=== PATIENT | male | born 1955 | race Caucasian/White ===

== ENCOUNTER → 2016-10-15 | Outpatient (CLI) | payer OTHER, MEDICARE ==
[~2016-10-15] MED LIST: CARVEDILOL25 MG PO; CLOPIDOGREL75 MG PO; Carafate1 GM PO; DIGITEK0.25 MG PO; DULOXETINE HCL30 MG PO; Duragesic 100100 MCG TD; LISINOPRIL10 MG PO; LYRICA100 M1 PO; LYRICA200 M1 PO; MIRTAZAPINE30 M2 PO; NATURE'S BLEND F1 MG PO; PERCOCET 325 MG1 TA2 PO; PERCOCET 325 MG1 TA5 PO; POTASSIUM CHLOR8 MEQ PO; SIMBRINZA 1%-0.28 ML OPH; TEMAZEPAM30 MG PO; TESTOSTERO200 MG/10 IM; TRAVOPROST 0.02.5 ML OP; ZOFRAN4 MG PO
[2016-10-15 15:42] LABS: BASO # 0.1 10*3/uL (0.0-0.1); BASO % 0.7 % (0.0-1.0); EOS # 0.5 10*3/uL (0.0-0.4); EOS % 4.9 % (1.0-4.0); IG # 0.1 10*3/uL (0.0-0.1); LYMPH # 1.3 10*3/uL (1.3-4.4); LYMPH % 11.8 % (27.0-41.0); MEAN CELL VOLUME 92.9 fl (80.0-94.0); MEAN CORPUSCULAR HGB CONC 33.3 g/dl (33.0-37.0); MEAN PLATELET VOLUME 10.6 fl (9.6-12.3); MONO # 0.8 10*3/uL (0.1-1.0); MONO % 7.2 % (3.0-9.0); NEUT # 8.1 10*3/uL (2.3-7.9); NEUT % 74.8 % (47.0-73.0); PLATELET COUNT AUTOMATED 250 10*3/uL (130-400); RED CELL DISTRI WIDTH 14.9 % (0-14.5); WHITE BLOOD COUNT 10.9 10*3/uL (4.8-10.8)
[2016-10-15 15:45] LABS: BILIRUBIN NEGATIVE (NEGATIVE); BLOOD NEGATIVE (NEGATIVE); CLARITY SL CLOUDY (CLEAR); COLOR YELLOW (YELLOW); GLUCOSE NEGATIVE (NEGATIVE); KETONE NEGATIVE (NEGATIVE); LEUKO ESTERASE 1+ (NEGATIVE); NITRITE NEGATIVE (NEGATIVE); PROTEIN TRACE (NEGATIVE); SPECIFIC GRAVITY 1.025 (1.005-1.030)
[2016-10-15 16:09] LABS: ALBUMIN 3.2 gm/dl (3.1-4.5); ALKALINE PHOSPHATASE 70 U/L (45-117); BILIRUBIN, TOTAL 0.5 mg/dl (0.2-1.0); BUN 8 mg/dl (7-24); C-REACTIVE PROTEIN 0.44 MG/DL (0-0.3); CARBON DIOXIDE 25 mmol/L (21-32); CHLORIDE 112 mmol/L (98-107); EST GLOM FILT AFRICAN AMERICAN > 60 ml/min; GLUCOSE 101 mg/dL (65-99); POTASSIUM 3.5 mmol/L (3.5-5.1); SGOT/AST 16 IU/L (3-35); SGPT/ALT 23 U/L (12-78); SODIUM 145 mmol/L (136-145); TOTAL PROTEIN 5.9 gm/dL (6.4-8.2)
[2016-10-15 16:14] LABS: BACTERIA 1+; EPITHELIAL CELLS 0-2; RBC 0-2 rbc/hpf (0-2); WBC 21-30 wbc/hpf (0-5)
[2016-10-15 16:16] LABS: PROTHROMBIN TIME 10.7 SECONDS (9.0-12.4)
== END | disposition home or self-care (01) ==
LOC: LAB 15:02
PROVIDERS: Neurological Surgery
DX: Z01.818 Encounter for other preprocedural examination (principal); Z51.81 Encounter for therapeutic drug level monitoring; Z79.899 Other long term (current) drug therapy; M81.8 Other osteoporosis without current pathological fracture; M47.816 Spondylosis without myelopathy or radiculopathy, lumbar region

== ENCOUNTER → 2017-01-17 | Outpatient (CLI) | payer OTHER, MEDICARE | END | disposition home or self-care (01) | LOC: MRI 01:46 | DX: M47.816 Spondylosis without myelopathy or radiculopathy, lumbar region (principal); M43.16 Spondylolisthesis, lumbar region; M79.652 Pain in left thigh; M54.5 Low back pain; M51.36 Other intervertebral disc degeneration, lumbar region ==

== ENCOUNTER 2017-07-25 09:50 | Emergency (ER) | payer OTHER, MEDICARE ==
[~2017-07-25] VITALS: Ht 177.8 cm; Wt 68.5 kg
[2017-07-25] MEDS ORDERED: CLINDAMYCIN HC300 MG PO (11:18)
== END 2017-07-25 11:36 | disposition home or self-care (01) ==
LOC: ED 09:50
DX: L03.116 Cellulitis of left lower limb (principal); Z88.5 Allergy status to narcotic agent; Z88.8 Allergy status to other drugs, medicaments and biological substances

== ENCOUNTER 2017-08-14 18:06 | Emergency (ER) | payer OTHER, MEDICARE ==
[~2017-08-14] VITALS: Ht 180.3 cm; Wt 68.0 kg
[~2017-08-14 18:06] MED LIST changes: +CLINDAMYCIN HC300 MG PO
[2017-08-14] MEDS ORDERED: AUGMENTIN 875875 MG PO (18:34)
== END 2017-08-14 19:00 | disposition home or self-care (01) ==
LOC: ED 18:06
DX: S01.412A Laceration without foreign body of left cheek and temporomandibular area, initial encounter (principal); W54.0XXA Bitten by dog, initial encounter; Y93.89 Activity, other specified; Y92.89 Other specified places as the place of occurrence of the external cause; Y99.8 Other external cause status; Z88.5 Allergy status to narcotic agent; Z88.8 Allergy status to other drugs, medicaments and biological substances; Z79.899 Other long term (current) drug therapy

== ENCOUNTER → 2017-10-31 | Outpatient (CLI) | payer MEDICARE, OTHER ==
[~2017-10-31] MED LIST changes: +AUGMENTIN 875875 MG PO
--- NOTE | ~2017-10-31 | HM ---
[place], [place] HOLTER MONITOR REPORT NAME: MAGGIE BANKS UNIT #: [id number] ROOM: DOCTOR: RADAMES BROCK MD BIRTHDATE: [birth year] DOS: 11/02/2017 INDICATIONS: Palpitations. PROCEDURE: The patient underwent monitoring utilizing a Holter device for 24 hours beginning on 10/31/2017. The recording was analyzed and interpreted on 11/02/2017. FINDINGS: The patient's rhythm was sinus throughout the monitored period with an average heart rate of 77. The heart rate varied from 53-112 beats per minute in sinus rhythm. He had rare isolated premature ventricular contractions. No ventricular tachycardia was seen. He had occasional isolated premature atrial contractions with two short atrial runs. The longest of these was 7 beats in duration at 6:00 in the evening and had a heart rate of 138. 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 A diary was submitted, but no entries were made. IMPRESSION: 1. Normal sinus rhythm with normal rate variation. 2. Rare premature ventricular contractions. 3. Occasional premature atrial contractions with a short (7 beat) run of AV olesya reentrant tachycardia. RADAMES BROCK MD CM:HOLTER:HOLTER MONITOR REPORT [id number] RADAMES BROCK MD
[2017-10-31 09:48] LABS: BASO # 0.1 10*3/uL (0.0-0.1); BASO % 0.9 % (0.0-1.0); EOS # 0.4 10*3/uL (0.0-0.4); EOS % 4.1 % (1.0-4.0); HEMATOCRIT 43.8 % (42.0-52.0); HEMOGLOBIN 14.4 g/dl (14.0-18.0); LYMPH # 1.6 10*3/uL (1.3-4.4); LYMPH % 18.8 % (27.0-41.0); MEAN CELL VOLUME 90.9 fl (80.0-94.0); MEAN CORPUSCULAR HGB 29.9 pg (27.0-31.0); MEAN CORPUSCULAR HGB CONC 32.9 g/dl (33.0-37.0); MEAN PLATELET VOLUME 11.3 fl (9.6-12.3); MONO # 0.7 10*3/uL (0.1-1.0); MONO % 7.7 % (3.0-9.0); NEUT # 5.8 10*3/uL (2.3-7.9); NEUT % 68.3 % (47.0-73.0); PLATELET COUNT AUTOMATED 181 10*3/uL (130-400); RED BLOOD COUNT 4.82 10*6/uL (4.50-5.90); WHITE BLOOD COUNT 8.5 10*3/uL (4.8-10.8)
[2017-10-31 10:31] LABS: ALBUMIN 3.2 gm/dl (3.1-4.5); BUN 5 mg/dl (7-24); CHLORIDE 109 mmol/L (98-107); POTASSIUM 3.5 mmol/L (3.5-5.1); SGOT/AST 22 IU/L (3-35); SODIUM 143 mmol/L (136-145)
[2017-10-31 10:42] LABS: ALKALINE PHOSPHATASE 85 U/L (45-117); CHOLESTEROL 119 mg/dL (<200); CREATININE 0.78 mg/dL (0.70-1.30); HDL CHOLESTEROL 36 mg/dl (40-60); LDL CHOLESTEROL 61 mg/dL (9-159); SGPT/ALT 39 U/L (12-78); TOTAL PROTEIN 6.1 gm/dL (6.4-8.2); TRIGLYCERIDES 108 mg/dl (<150); VLDL CHOLESTEROL 22 mg/dL (6-40)
== END | disposition home or self-care (01) ==
LOC: LAB 08:57 → CARD 09:00
PROVIDERS: Internal Medicine
DX: I73.9 Peripheral vascular disease, unspecified (principal); R00.2 Palpitations; E29.1 Testicular hypofunction; Z79.899 Other long term (current) drug therapy

== ENCOUNTER → 2017-11-09 | Outpatient (CLI) | payer MEDICARE, OTHER | END | disposition home or self-care (01) | LOC: RAD 08:53 | DX: R10.13 Epigastric pain (principal); R13.10 Dysphagia, unspecified ==

== ENCOUNTER → 2017-11-18 | Day surgery (SDC) | payer MEDICARE, OTHER ==
[~2017-11-18] VITALS: Ht 177.8 cm; Wt 72.6 kg
--- NOTE | ~2017-11-18 | PROC NOTE ---
[place], [place] PROCEDURE NOTE NAME: MAGGIE BANKS UNIT #: [id number] ROOM: DOCTOR: CLAYTON CONTRERAS MD BIRTHDATE: [birth year] DOS: 11/18/2017 PREOPERATIVE DIAGNOSIS: Dysphagia. POSTOPERATIVE DIAGNOSES: Gastritis, small hiatal hernia. PROCEDURE: Esophagogastroduodenoscopy with antral biopsies x 2. ENDOSCOPIST: Clayton Contreras MD COMPLIANCE SPECIALIST: None. ANESTHESIA: MAC. INDICATIONS: This is a 61-year-old gentleman with a history of longstanding dysphagia and a previous history of gastroesophageal reflux disease, who is here for the above-mentioned procedure. The procedure and its complications were explained to the patient in detail preoperatively. Complications that were discussed included but were not limited to bleeding, missed lesions, esophageal perforation and stomach perforation. He agreed to proceed. DESCRIPTION OF PROCEDURE: After identifying the patient, the patient was brought to the endoscopy suite and placed in the left lateral position. After a time-out procedure was called, and sedation was administered by the anesthesia team and a bite block was placed. An adult gastroscope was now introduced into the mouth and advanced sequentially into the pharynx, esophagus, stomach and the first 2 parts of the duodenum. There was found to be mild gonzalez gastritis that was visualized, and therefore two antral biopsies were taken for histopathological diagnosis. The duodenum was within normal limits. The esophagus also was within normal limits with no evidence of any esophagitis or any kind of luminal obstruction. There was a small hiatal hernia that could be seen. These findings were confirmed upon withdrawal of the scope. The patient was then taken to the recovery room after the bite block was removed in a stable fashion. Dr. Clayton Contreras, the attending endoscopist, was present throughout the operating case. Clayton Contreras MD CM:PROCNOTE:PROCEDURE NOTE [id number] CLAYTON CONTRERAS MD
[2017-11-18 07:30] VITALS: BP 116/68
[2017-11-18 09:18] VITALS: BP 103/64
[2017-11-18 09:35] VITALS: BP 104/61
[2017-11-18 09:47] VITALS: BP 136/69
== END | disposition home or self-care (01) ==
LOC: SDC 11-15 13:15
DX: K29.50 Unspecified chronic gastritis without bleeding (principal); K44.9 Diaphragmatic hernia without obstruction or gangrene; K21.9 Gastro-esophageal reflux disease without esophagitis; I10 Essential (primary) hypertension; Z86.73 Personal history of transient ischemic attack (TIA), and cerebral infarction without residual deficits; Z87.442 Personal history of urinary calculi; Z98.890 Other specified postprocedural states; Z80.9 Family history of malignant neoplasm, unspecified; Z83.3 Family history of diabetes mellitus; Z88.8 Allergy status to other drugs, medicaments and biological substances; E11.39 Type 2 diabetes mellitus with other diabetic ophthalmic complication; H40.9 Unspecified glaucoma

== ENCOUNTER → 2017-11-25 | Outpatient (CLI) | payer MEDICARE, OTHER ==
[~2017-11-25] MED LIST changes: +CIALIS5 MG PO; +CYMBALTA30 MG PO; +OXYBUTYNIN5 MG PO; +RESTORIL30 M1 PO
--- NOTE | ~2017-11-25 | ST ---
[place], [place] EXERCISE STRESS TEST REPORT NAME: MAGGIE BANKS UNIT #: [id number] ROOM: DOCTOR: RADAMES BROCK MD BIRTHDATE: [birth year] DOS: 11/25/2017 PHARMACOLOGIC STRESS TEST. INDICATIONS: Chest pressure, history of cardiomyopathy. PROCEDURE: The patient was given a rapid infusion of regadenoson 0.4 mg intravenously followed by a saline flush. He felt odd, had central chest discomfort and dyspnea. All symptoms resolved spontaneously. His resting heart rate of 55 parish to 91. The resting blood pressure of 112/68 fell to 112/58. His resting electrocardiogram showed a nonspecific intraventricular conduction defect. No further changes aside from tachycardia occurred with the infusion. 40 seconds after the infusion, he was given radionuclide intravenously. IMPRESSION: 1. Well tolerated infusion of regadenoson. 2. Radionuclide injected. Please see the separately reported image study for further details of the patient's stress test results. RADAMES BROCK MD CM:STRESS:EXERCISE STRESS TEST REPORT [id number] RADAMES BROCK MD
== END | disposition home or self-care (01) ==
LOC: CARD 01:52
DX: I42.9 Cardiomyopathy, unspecified (principal); G45.9 Transient cerebral ischemic attack, unspecified; I73.9 Peripheral vascular disease, unspecified; R00.2 Palpitations; R06.09 Other forms of dyspnea

== ENCOUNTER → 2019-02-14 | Outpatient (CLI) | payer BC, MEDICARE ==
[2019-02-15 08:09] LABS: ALPHA-1-ANTITRYPSIN, SERUM 131 mg/dL (90-200)
[2019-02-16 17:06] LABS: STRIATIONAL ANTIBODIES 160184 Negative (Neg:<1:40)
[2019-02-23 14:09] LABS: ACHR MODULATING AB 085933 <12 % (0-20)
[2019-02-27 17:15] LABS: ACHR BLOCKING AB 085926 13 % (0-25)
== END | disposition home or self-care (01) ==
LOC: LAB 14:23
PROVIDERS: Physician Assistant
DX: L03.116 Cellulitis of left lower limb (principal); H53.2 Diplopia; R53.83 Other fatigue; R53.1 Weakness; G62.9 Polyneuropathy, unspecified

== ENCOUNTER 2019-10-18 13:09 | Emergency (ER) | payer MEDICARE ==
[~2019-10-18] VITALS: Ht 180.3 cm; Wt 68.0 kg
[2019-10-18] MEDS ORDERED: CLINDAMYCIN HC300 MG PO (14:51)
== END 2019-10-18 15:17 | disposition home or self-care (01) ==
LOC: ED 13:09
DX: S80.222A Blister (nonthermal), left knee, initial encounter (principal); L02.416 Cutaneous abscess of left lower limb; Z89.512 Acquired absence of left leg below knee; Z88.6 Allergy status to analgesic agent; Z88.8 Allergy status to other drugs, medicaments and biological substances; Z79.2 Long term (current) use of antibiotics; Z79.899 Other long term (current) drug therapy; Z87.442 Personal history of urinary calculi; X58.XXXA Exposure to other specified factors, initial encounter; Y93.89 Activity, other specified; Y92.89 Other specified places as the place of occurrence of the external cause; Y99.8 Other external cause status

== ENCOUNTER → 2019-11-14 | Outpatient (CLI) | payer MEDICARE | END | disposition home or self-care (01) | LOC: RAD 12:02 | DX: M17.12 Unilateral primary osteoarthritis, left knee (principal); M54.16 Radiculopathy, lumbar region; M51.36 Other intervertebral disc degeneration, lumbar region; M53.86 Other specified dorsopathies, lumbar region; M79.604 Pain in right leg; M54.5 Low back pain ==

== ENCOUNTER → 2021-08-13 | Day surgery (SDC) | payer MEDICARE ==
[2021-08-10 15:00] LABS: BASO # 0.1 10*3/uL (0.0-0.1); BASO % 0.9 % (0.0-1.0); EOS # 0.1 10*3/uL (0.0-0.4); EOS % 1.4 % (1.0-4.0); HEMATOCRIT 41.7 % (42.0-52.0); LYMPH # 1.4 10*3/uL (1.3-4.4); LYMPH % 16.6 % (27.0-41.0); MEAN CELL VOLUME 92.9 fl (80.0-94.0); MEAN CORPUSCULAR HGB 30.7 pg (27.0-31.0); MEAN CORPUSCULAR HGB CONC 33.1 g/dl (33.0-37.0); MEAN PLATELET VOLUME 11.2 fl (9.6-12.3); MONO # 0.7 10*3/uL (0.1-1.0); MONO % 7.8 % (3.0-9.0); NEUT # 6.2 10*3/uL (2.3-7.9); NEUT % 72.7 % (47.0-73.0); PLATELET COUNT AUTOMATED 213 10*3/uL (130-400); RED BLOOD COUNT 4.49 10*6/uL (4.50-5.90); RED CELL DISTRI WIDTH 12.7 % (0-14.5); WHITE BLOOD COUNT 8.6 10*3/uL (4.8-10.8)
[2021-08-10 15:21] LABS: BUN 8 mg/dl (7-24); CHLORIDE 111 mmol/L (98-107); CREATININE 0.64 mg/dL (0.70-1.30); POTASSIUM 4.3 mmol/L (3.5-5.1); SODIUM 143 mmol/L (136-145)
[~2021-08-13] VITALS: Ht 180.3 cm; Wt 68.9 kg
[2021-08-13 07:03] VITALS: BP 106/53
[2021-08-13 08:01] VITALS: BP 86/48
[2021-08-13 08:15] VITALS: BP 90/48
[2021-08-13 08:31] VITALS: BP 102/57
== END | disposition home or self-care (01) ==
LOC: SDC 08-10 09:30
PROVIDERS: ATTEND Orthopaedic Surgery
DX: G56.02 Carpal tunnel syndrome, left upper limb (principal); I10 Essential (primary) hypertension; Z86.73 Personal history of transient ischemic attack (TIA), and cerebral infarction without residual deficits; Z79.899 Other long term (current) drug therapy

== ENCOUNTER → 2021-10-14 | Outpatient (CLI) | payer MEDICARE | END | disposition home or self-care (01) | LOC: RAD 10:30 | PROVIDERS: ATTEND Orthopaedic Surgery | DX: M17.12 Unilateral primary osteoarthritis, left knee (principal); I70.202 Unspecified atherosclerosis of native arteries of extremities, left leg; Z89.442 Acquired absence of left ankle ==

== ENCOUNTER → 2021-12-22 | Outpatient (CLI) | payer MEDICARE | END | disposition home or self-care (01) | LOC: CARD 10:00 | PROVIDERS: ATTEND Physician Assistant | DX: I34.0 Nonrheumatic mitral (valve) insufficiency (principal); Z79.899 Other long term (current) drug therapy; B33.24 Viral cardiomyopathy; R94.31 Abnormal electrocardiogram [ECG] [EKG] ==

== ENCOUNTER → 2022-11-08 | Outpatient (CLI) | payer MEDICARE ==
[2022-11-08 13:43] LABS: HEMATOCRIT 41.7 % (42.0-52.0); MEAN CELL VOLUME 93.1 fl (80.0-94.0); MEAN CORPUSCULAR HGB 31.3 pg (27.0-31.0); MEAN CORPUSCULAR HGB CONC 33.6 g/dl (33.0-37.0); MEAN PLATELET VOLUME 10.5 fl (9.6-12.3); RED BLOOD COUNT 4.48 10*6/uL (4.50-5.90); RED CELL DISTRI WIDTH 13.5 % (0-14.5)
[2022-11-08 14:06] LABS: ALKALINE PHOSPHATASE 65 U/L (46-116); BUN 9 mg/dl (9-23); CHLORIDE 107 mmol/L (98-107); CHOLESTEROL 174 mg/dL (<200); LDL CHOLESTEROL 111 mg/dL (9-159); POTASSIUM 3.7 mmol/L (3.4-5.1); SGPT/ALT 21 U/L (10-49); TOTAL PROTEIN 6.1 gm/dL (6.0-8.0); TRIGLYCERIDES 101 mg/dl (<150)
== END | disposition home or self-care (01) ==
LOC: LAB 13:24
PROVIDERS: ATTEND Physician Assistant
DX: I25.10 Atherosclerotic heart disease of native coronary artery without angina pectoris (principal); I73.9 Peripheral vascular disease, unspecified; K22.4 Dyskinesia of esophagus; N40.1 Benign prostatic hyperplasia with lower urinary tract symptoms; R35.0 Frequency of micturition; N52.8 Other male erectile dysfunction; G62.9 Polyneuropathy, unspecified; Z79.899 Other long term (current) drug therapy

== ENCOUNTER → 2023-01-03 | Outpatient (CLI) | payer MEDICARE | END | disposition home or self-care (01) | LOC: CARD 00:17 | PROVIDERS: ATTEND Internal Medicine Cardiovascular Disease | DX: R06.09 Other forms of dyspnea (principal); R06.02 Shortness of breath ==

== ENCOUNTER → 2023-01-19 | Outpatient (CLI) | payer MEDICARE | END | disposition home or self-care (01) | LOC: CARD 01:05 | PROVIDERS: ATTEND Internal Medicine Cardiovascular Disease | DX: I08.0 Rheumatic disorders of both mitral and aortic valves (principal); I77.810 Thoracic aortic ectasia ==

== ENCOUNTER → 2023-05-27 | Outpatient (CLI) | payer MEDICARE | END | disposition home or self-care (01) | LOC: CT 01:19 | PROVIDERS: ATTEND Physician Assistant | DX: K57.30 Diverticulosis of large intestine without perforation or abscess without bleeding (principal); N32.81 Overactive bladder; R63.4 Abnormal weight loss; K22.4 Dyskinesia of esophagus; R63.0 Anorexia; I70.0 Atherosclerosis of aorta; M47.816 Spondylosis without myelopathy or radiculopathy, lumbar region; M51.37 Other intervertebral disc degeneration, lumbosacral region; Z90.49 Acquired absence of other specified parts of digestive tract ==

== ENCOUNTER → 2023-07-22 | Outpatient (CLI) | payer MEDICARE | END | disposition home or self-care (01) | LOC: CT 10:00 | PROVIDERS: ATTEND Physician Assistant | DX: I71.21 Aneurysm of the ascending aorta, without rupture (principal); R91.8 Other nonspecific abnormal finding of lung field ==

== ENCOUNTER → 2023-08-23 | Outpatient (CLI) | payer MEDICARE | END | disposition home or self-care (01) | LOC: RAD/SH 08-16 09:00 | PROVIDERS: ATTEND Nurse Practitioner Family | DX: R13.10 Dysphagia, unspecified (principal); R63.4 Abnormal weight loss ==

== ENCOUNTER → 2023-11-08 | Outpatient (CLI) | payer MEDICARE ==
[2023-11-08 18:02] LABS: HEMATOCRIT 41.8 % (42.0-52.0); MEAN CELL VOLUME 93.7 fl (80.0-94.0); MEAN CORPUSCULAR HGB 30.3 pg (27.0-31.0); MEAN CORPUSCULAR HGB CONC 32.3 g/dl (33.0-37.0); MEAN PLATELET VOLUME 12.2 fl (9.6-12.3); RED BLOOD COUNT 4.46 10*6/uL (4.50-5.90); RED CELL DISTRI WIDTH 13.8 % (0-14.5); WHITE BLOOD COUNT 16.1 10*3/uL (4.8-10.8)
[2023-11-08 18:15] LABS: ALKALINE PHOSPHATASE 78 U/L (46-116); BUN 17 mg/dl (9-23); CHLORIDE 104 mmol/L (98-107); SGPT/ALT 11 U/L (5-49); TOTAL PROTEIN 6.9 gm/dL (6.0-8.0)
[2023-11-09 06:08] LABS: TOTAL PROTEIN, SERUM 6.6 g/dL (6.0-8.5)
[2023-11-09 09:07] LABS: HBSAG Negative (Negative); HEP B CORE AB, IGM Negative (Negative); HEPATITIS C ANTIBODY Non Reactive (Non Reactive)
[2023-11-09 14:08] LABS: A/G RATIO 1.4 (0.7-1.7); ALBUMIN 3.9 g/dL (2.9-4.4); ALPHA-1-GLOBULIN 0.2 g/dL (0.0-0.4); ALPHA-2-GLOBULIN 0.6 g/dL (0.4-1.0); BETA GLOBULIN 0.9 g/dL (0.7-1.3); GLOBULIN, TOTAL 2.7 g/dL (2.2-3.9); M-SPIKE Not Observed g/dL (Not Observed)
== END ==
LOC: RAD 10:18
PROVIDERS: Physician Assistant; ATTEND Physical Medicine & Rehabilitation
DX: Z12.5 Encounter for screening for malignant neoplasm of prostate (principal); M19.012 Primary osteoarthritis, left shoulder; M19.011 Primary osteoarthritis, right shoulder; R43.2 Parageusia; R91.8 Other nonspecific abnormal finding of lung field; R63.0 Anorexia; B33.24 Viral cardiomyopathy; M25.511 Pain in right shoulder; M25.512 Pain in left shoulder

== ENCOUNTER → 2023-11-17 | Outpatient (CLI) | payer MEDICARE ==
[~2023-11-17] MED LIST changes: +IOHEXOL 300 MG/ML 100 ML VIAL IV ONE
== END | disposition home or self-care (01) ==
LOC: CT 02:15
PROVIDERS: ATTEND Physician Assistant
DX: Z12.5 Encounter for screening for malignant neoplasm of prostate (principal); R63.0 Anorexia; B33.24 Viral cardiomyopathy; R91.8 Other nonspecific abnormal finding of lung field; R63.4 Abnormal weight loss; R43.2 Parageusia; M25.852 Other specified joint disorders, left hip; M25.851 Other specified joint disorders, right hip; M48.07 Spinal stenosis, lumbosacral region; K57.30 Diverticulosis of large intestine without perforation or abscess without bleeding; N28.1 Cyst of kidney, acquired; I70.0 Atherosclerosis of aorta; I70.209 Unspecified atherosclerosis of native arteries of extremities, unspecified extremity; Z90.49 Acquired absence of other specified parts of digestive tract

== ENCOUNTER → 2024-07-03 | Outpatient (CLI) | payer MEDICARE | END | disposition home or self-care (01) | LOC: CT 02:11 | PROVIDERS: ATTEND Physician Assistant | DX: K57.30 Diverticulosis of large intestine without perforation or abscess without bleeding (principal); N28.1 Cyst of kidney, acquired; N26.1 Atrophy of kidney (terminal); R10.32 Left lower quadrant pain; R10.2 Pelvic and perineal pain; Z90.49 Acquired absence of other specified parts of digestive tract ==

== ENCOUNTER → 2024-10-22 | Outpatient (CLI) | payer MEDICARE ==
[~2024-10-22] MED LIST changes: -IOHEXOL 300 MG/ML 100 ML VIAL IV ONE
== END | disposition home or self-care (01) ==
LOC: LAB 18:04
PROVIDERS: ATTEND Nurse Practitioner Family
DX: R30.0 Dysuria (principal)

== ENCOUNTER 2024-12-11 15:29 | Emergency (ER) | payer MEDICARE ==
[~2024-12-11] VITALS: Ht 180.3 cm; Wt 65.8 kg
[2024-12-11] MEDS ORDERED: PANTOPRAZOLE SO40 MG PO (16:25)
[2024-12-11] MEDS ORDERED: FAMOTIDINE40 MG PO (16:25)
[2024-12-11] MEDS ORDERED: FENTANYL1 EAC3 T (16:27)
[2024-12-11] MEDS ORDERED: SOLIFENACIN SUC10 MG PO (16:27)
[2024-12-11] MEDS ORDERED: NAPROSYN500 MG PO (19:25)
== END 2024-12-11 19:29 | disposition home or self-care (01) ==
LOC: ED 15:29
DX: M79.89 Other specified soft tissue disorders (principal); R60.0 Localized edema; I10 Essential (primary) hypertension; Z86.73 Personal history of transient ischemic attack (TIA), and cerebral infarction without residual deficits; Z87.442 Personal history of urinary calculi; Z88.6 Allergy status to analgesic agent; Z88.5 Allergy status to narcotic agent; Z88.8 Allergy status to other drugs, medicaments and biological substances; Z98.890 Other specified postprocedural states; Z90.49 Acquired absence of other specified parts of digestive tract

== ENCOUNTER → 2025-03-04 | Outpatient (CLI) | payer MEDICARE ==
[~2025-03-04] MED LIST changes: +FAMOTIDINE40 MG PO; +FENTANYL1 EAC3 T; +NAPROSYN500 MG PO; +PANTOPRAZOLE SO40 MG PO; +SOLIFENACIN SUC10 MG PO
[2025-03-04 15:33] LABS: BF LYMPHOCYTES 1 %; BF MACROPHAGES 2 %; BF NEUTROPHILS 97 %
[2025-03-05 16:08] LABS: ACID FAST SPEC PROCESSING Direct Inoculation (.)
== END | disposition home or self-care (01) ==
LOC: LAB 11:59
PROVIDERS: ATTEND Orthopaedic Surgery
DX: M25.462 Effusion, left knee (principal)

== ENCOUNTER → 2025-04-11 | Outpatient (CLI) | payer MEDICARE | END | disposition home or self-care (01) | LOC: MRI 12:37 | PROVIDERS: ATTEND Orthopaedic Surgery | DX: S83.412A Sprain of medial collateral ligament of left knee, initial encounter (principal); S83.282A Other tear of lateral meniscus, current injury, left knee, initial encounter; M71.22 Synovial cyst of popliteal space [Baker], left knee; M25.462 Effusion, left knee; X58.XXXA Exposure to other specified factors, initial encounter; Y93.89 Activity, other specified; Y92.89 Other specified places as the place of occurrence of the external cause; Y99.8 Other external cause status ==

== ENCOUNTER → 2025-06-05 | Outpatient (CLI) | payer MEDICARE ==
[2025-06-05 15:50] LABS: BASO # 0.0 10*3/uL (0.0-0.1); BASO % 0.4 % (0.0-1.0); EOS # 0.2 10*3/uL (0.0-0.4); EOS % 1.5 % (1.0-4.0); MEAN CELL VOLUME 88.7 fl (80.0-94.0); MEAN CORPUSCULAR HGB 28.4 pg (27.0-31.0); MEAN PLATELET VOLUME 9.7 fl (9.6-12.3); MONO # 1.0 10*3/uL (0.1-1.0); MONO % 9.4 % (3.0-9.0); NEUT # 8.2 10*3/uL (2.3-7.9); NEUT % 80.3 % (47.0-73.0); NUCLEATED RED BLOOD CELL 0.0 % (0.0-0.0); NUCLEATED RED BLOOD CELL 0.0 10*3/uL (0.0-0.0); PLATELET COUNT AUTOMATED 359 10*3/uL (130-400); RED CELL DISTRI WIDTH 12.9 % (0-14.5)
== END ==
LOC: LAB 15:31
PROVIDERS: ATTEND Orthopaedic Surgery
DX: R53.83 Other fatigue (principal)

== ENCOUNTER → 2025-06-12 | Outpatient (CLI) | payer MEDICARE ==
[~2025-06-12] MED LIST changes: +GADOTERATE MEGLUMINE 7.5 MMOL/15 ML VIAL IV ONE
== END | disposition home or self-care (01) ==
LOC: MRI 00:13
PROVIDERS: ATTEND Orthopaedic Surgery
DX: S88.112D Complete traumatic amputation at level between knee and ankle, left lower leg, subsequent encounter (principal); M25.862 Other specified joint disorders, left knee; M25.462 Effusion, left knee; X58.XXXD Exposure to other specified factors, subsequent encounter

== ENCOUNTER → 2025-06-24 | Outpatient (CLI) | payer MEDICARE ==
[~2025-06-24] MED LIST changes: -GADOTERATE MEGLUMINE 7.5 MMOL/15 ML VIAL IV ONE
[2025-06-24 15:49] LABS: BASO # 0.1 10*3/uL (0.0-0.1); BASO % 0.8 % (0.0-1.0); EOS # 0.3 10*3/uL (0.0-0.4); EOS % 3.2 % (1.0-4.0); MEAN CELL VOLUME 87.4 fl (80.0-94.0); MEAN CORPUSCULAR HGB 28.2 pg (27.0-31.0); MEAN PLATELET VOLUME 9.8 fl (9.6-12.3); MONO # 0.8 10*3/uL (0.1-1.0); MONO % 8.3 % (3.0-9.0); NEUT # 7.6 10*3/uL (2.3-7.9); NEUT % 75.4 % (47.0-73.0); NUCLEATED RED BLOOD CELL 0.0 % (0.0-0.0); NUCLEATED RED BLOOD CELL 0.0 10*3/uL (0.0-0.0); PLATELET COUNT AUTOMATED 332 10*3/uL (130-400); RED CELL DISTRI WIDTH 13.6 % (0-14.5)
== END | disposition home or self-care (01) ==
LOC: LAB 15:20
PROVIDERS: ATTEND Orthopaedic Surgery
DX: M25.569 Pain in unspecified knee (principal)

== ENCOUNTER → 2025-09-02 | Outpatient (CLI) | payer MEDICARE | END | disposition home or self-care (01) | LOC: WOUNDCARE 02:19 | PROVIDERS: ATTEND Nurse Practitioner Family | DX: L02.416 Cutaneous abscess of left lower limb (principal); M70.52 Other bursitis of knee, left knee; D64.9 Anemia, unspecified; I42.9 Cardiomyopathy, unspecified; I10 Essential (primary) hypertension; K21.9 Gastro-esophageal reflux disease without esophagitis; Z90.49 Acquired absence of other specified parts of digestive tract; Z89.512 Acquired absence of left leg below knee; Z86.73 Personal history of transient ischemic attack (TIA), and cerebral infarction without residual deficits ==

== ENCOUNTER → 2025-09-09 | Outpatient (CLI) | payer MEDICARE | END | disposition home or self-care (01) | LOC: WOUNDCARE 05:05 | PROVIDERS: ATTEND Nurse Practitioner Family | DX: L02.416 Cutaneous abscess of left lower limb (principal); M70.52 Other bursitis of knee, left knee; D64.9 Anemia, unspecified; I42.9 Cardiomyopathy, unspecified; I10 Essential (primary) hypertension; K21.9 Gastro-esophageal reflux disease without esophagitis; Z86.73 Personal history of transient ischemic attack (TIA), and cerebral infarction without residual deficits; Z90.49 Acquired absence of other specified parts of digestive tract; Z89.512 Acquired absence of left leg below knee; Z98.890 Other specified postprocedural states; Z79.899 Other long term (current) drug therapy ==

== ENCOUNTER → 2025-09-13 | Outpatient (CLI) | payer MEDICARE ==
[~2025-09-13] MED LIST changes: +GADOTERATE MEGLUMINE 7.5 MMOL/15 ML VIAL IV ONE
== END | disposition home or self-care (01) ==
LOC: MRI 13:09
PROVIDERS: ATTEND Orthopaedic Surgery
DX: M17.12 Unilateral primary osteoarthritis, left knee (principal); M25.462 Effusion, left knee; M25.762 Osteophyte, left knee; M86.8X8 Other osteomyelitis, other site; Z89.9 Acquired absence of limb, unspecified

== ENCOUNTER → 2025-09-20 | Outpatient (CLI) | payer MEDICARE ==
[~2025-09-20] MED LIST changes: -GADOTERATE MEGLUMINE 7.5 MMOL/15 ML VIAL IV ONE
[2025-09-20 14:50] LABS: BUN 6 mg/dl (9-23)
== END | disposition home or self-care (01) ==
LOC: LAB 13:54
PROVIDERS: ATTEND Orthopaedic Surgery
DX: Z01.818 Encounter for other preprocedural examination (principal); I44.7 Left bundle-branch block, unspecified; M86.452 Chronic osteomyelitis with draining sinus, left femur